=== PATIENT | female | born 1955 | race Hispanic/Latino ===

== ENCOUNTER → 2022-08-29 | Outpatient (CLI) | payer OTHER | END | disposition home or self-care (01) | LOC: SHCH 09:38 | PROVIDERS: ATTEND Internal Medicine | DX: R00.2 Palpitations (principal) | CPT/HCPCS: 93306 ==

== ENCOUNTER 2024-03-28 09:16 | Day surgery (SDC) | payer OTHER, MEDICARE ==
[2024-03-26 09:47] LABS: BASOPHILS # (AUTO) 0.03 K/uL (0.00-0.20); BASOPHILS % (AUTO) 0.5 % (0.0-5.0); EOSINOPHILS # (AUTO) 0.15 K/uL (0.00-0.70); EOSINOPHILS % (AUTO) 2.6 % (0.0-8.0); HEMATOCRIT 42.4 % (36-48); IMMATURE GRANULOCYTE ABSOLUTE 0.01 K/uL (0-1); LYMPHOCYTES # (AUTO) 1.6 K/uL (1.0-4.8); LYMPHOCYTES % (AUTO) 28.8 % (21.0-51.0); MEAN CORPUSCULAR VOLUME 91.2 fL (79-99); MONOCYTES # (AUTO) 0.5 K/uL (0.1-1.0); MONOCYTES % (AUTO) 9.1 % (3.0-13.0); NEUTROPHILS # (AUTO) 3.4 K/uL (1.8-7.7); NEUTROPHILS % (AUTO) 58.8 % (40.0-77.0); PLATELET COUNT (AUTO) 198 K/uL (130-400); RED BLOOD CELL COUNT(AUTO) 4.65 MIL/uL (4.00-5.50); RED CELL DISTRIBUTION WIDTH 12.5 % (11.0-15.5); WHITE BLOOD COUNT (AUTO) 5.7 K/uL (4.8-10.8)
[2024-03-26 09:55] VITALS: BP 141/64; PULSE 58; RESP 16; TEMP 97.5
[2024-03-26 09:55] LABS: CREATININE 0.7 mg/dL (0.5-1.0); POTASSIUM 4.2 mmol/L (3.5-5.1)
[2024-03-26 10:03] LABS: INR 1.01 (0.85-1.15); PROTHROMBIN TIME 10.9 SEC (9.6-11.6)
[2024-03-26 10:04] LABS: PARTIAL THROMBOPLASTIN TIME 31.6 SEC (26.3-35.5)
[2024-03-28] VITALS (9 sets, daily range): BP systolic 112–188; BP diastolic 53–77; PULSE 54–65; RESP 10–18; TEMP 97.9–98
[~2024-03-28] VITALS: Ht 162.6 cm; Wt 85.9 kg
[~2024-03-28 09:16] MED LIST: ALEN35TA53 PO; APIX5TAB PO; CALTRATE PO; GLUCOSAMINE CHON PO; METO-408 PO; OMEP20CA12 PO; ONE A DAY PO; ROSU10TA72 PO; VITAMIN D3 PO
[2024-03-28] MEDS: 0.9%NACL 1000ML 1,000 ML IV ONE (10:22)
[2024-03-28] MEDS ORDERED: LIDOCAINE HCL 1% MDV 50ML VIAL ONE (13:04)
[2024-03-28] MEDS ORDERED: MIDAZOLAM HCL 1 MG/ML 2ML VIAL ONE ×2 (13:05→13:23)
[2024-03-28] MEDS ORDERED: MEPERIDINE-PF 25 MG/ML SYG ONE ×2 (13:05→13:23)
[2024-03-28] MEDS ORDERED: HEParin-NS 1,000 UNIT/500 ML 500 ML IV ONE (13:05)
[2024-03-28] MEDS ORDERED: HEParin 10,000 UNIT/10ML (1,000 UNIT/ML) VIAL ONE (13:05)
== END 2024-03-28 17:30 | disposition home or self-care (01) ==
LOC: DAH 09:16
PROVIDERS: ATTEND Internal Medicine Cardiovascular Disease
DX: I48.3 Typical atrial flutter (principal); I10 Essential (primary) hypertension; E78.5 Hyperlipidemia, unspecified; K21.9 Gastro-esophageal reflux disease without esophagitis; Z90.710 Acquired absence of both cervix and uterus; Z90.49 Acquired absence of other specified parts of digestive tract; Z98.890 Other specified postprocedural states; Z82.49 Family history of ischemic heart disease and other diseases of the circulatory system; Z79.890 Hormone replacement therapy; Z79.01 Long term (current) use of anticoagulants; Z79.899 Other long term (current) drug therapy
CPT/HCPCS: 80048; 85025; 85610; 85730; 36415; 93005; 93653; 82948; C1894 ×2; C1732 ×2; A4649 ×2; J7030; J1644 ×2; J2250 ×2; J2175 ×2; J3490; A4215; A4222; A4221; A4663; A4216; A4606; A4223 ×3; 99156; 99157